=== PATIENT | female | born 1995 | race Caucasian/White ===

== ENCOUNTER 2025-03-11 11:44 | Day surgery (SDC) | payer BC, MEDICAID ==
[~2025-03-11] VITALS: Ht 165.1 cm; Wt 98.2 kg
[~2025-03-11 11:44] MED LIST: ALBU10.7; ALBU8.5H; OMEP-173 PO; SUMA25TA3 PO; TIRZ7.5P3
[2025-03-11] MEDS ORDERED: LIDOCAINE 2% 100 MG/5 ML SDV (FOR ANES.) As Ordered ONE (13:02)
[2025-03-11 13:24] VITALS: TEMP 97.8
[2025-03-11 13:47] VITALS: BP 106/63; O2SAT 99
== END 2025-03-11 13:48 | disposition home or self-care (01) ==
LOC: M OPP 11:44
PROVIDERS: ATTEND Internal Medicine Gastroenterology
DX: D12.6 Benign neoplasm of colon, unspecified (principal); K64.0 First degree hemorrhoids; K62.5 Hemorrhage of anus and rectum; R19.4 Change in bowel habit; G47.30 Sleep apnea, unspecified; Z88.1 Allergy status to other antibiotic agents; Z91.041 Radiographic dye allergy status; Z79.85 Long-term (current) use of injectable non-insulin antidiabetic drugs; Z79.899 Other long term (current) drug therapy; Z86.718 Personal history of other venous thrombosis and embolism; R56.9 Unspecified convulsions; J45.909 Unspecified asthma, uncomplicated; F17.210 Nicotine dependence, cigarettes, uncomplicated